=== PATIENT | female | born 1995 | race African-American/Black ===

== ENCOUNTER 2025-05-18 08:29 | Outpatient (CLI) | payer OTHER, SELFPAY ==
--- NOTE | ~2025-05-18 | US_ITS ---
US right upper quadrant Indication: fatty liver Comparison: None Technique: Velasquez-scale and color Doppler images were obtained. Findings: LIVER: Mild increased echogenicity of the liver. . GALLBLADDER/BILIARY: Unremarkable.No cholelithiais, wall thickening or pericholecystic fluid. No biliary dilatation. CBD 5 mm. [place] sign negative. PANCREAS: Pancreas limited by bowel gas. Right Kidney: Right kidney was not imaged. Impression: Mild hepatic steatosis. Reviewed, dictated and finalized at location P. FINISHER Impression: Mild hepatic steatosis.
== END 2025-05-18 08:30 | disposition home or self-care (01) ==
PROVIDERS: PCP Internal Medicine Endocrinology, Diabetes & Metabolism; Visit Provider Internal Medicine Endocrinology, Diabetes & Metabolism
DX: K76.0 Fatty (change of) liver, not elsewhere classified (principal)
CPT/HCPCS: 76705